=== PATIENT | female | born 1995 | race African-American/Black ===

== ENCOUNTER 2024-03-14 07:24 | Emergency (ER) | payer MEDICAID, OTHER ==
[~2024-03-14] VITALS: Ht 157.5 cm; Wt 50.0 kg
--- NOTE | 2024-03-14 07:46 | ED.PDOC ---
History of Present Illness HPI Comments 28-year-old female presents to the ER prior history of high lipids which may be associated chief complaint CP. Patient reports constant substernal pain for the past couple of weeks and has been worsened throughout a couple days. Pt reports on the CP hurting when ever she breathes in and she immediately feels a tight/squeeze. Social history of marijuana use but denies tobacco and alcohol use. Denies chills fever N/V/D, SOB or other associated symptoms, modifiers, or recent injuries at this time. Chief Complaint: Chest Pain Time Seen by MD: 07:35 Reviewed Notes: Nurses Notes, Medications, Allergies Allergies: Coded Allergies: Penicillins (Verified Allergy, Unknown, 03/14/24) Information Source: Patient Mode of Arrival: Ambulatory Severity: Moderate Timing: Weeks Duration: Since onset Prehospital treatment: None Past Medical History PAST MEDICAL HISTORY: High Lipids Surgical History: Denies all surgeries RIPENING ROOM HAND History: No Pertinent RIPENING ROOM HAND History Family History Family History: Reviewed,noncontributory to illness, Unknown Social History Smoker: Non-Smoker Alcohol: Denies ETOH Use Drugs: Marijuana Lives In: Home Constitutional: denies: chills, diaphoresis, fatigue, fever, malaise, sweats, weakness, others EENTM: denies: blurred vision, double vision, ear bleeding, ear discharge, ear drainage, ear pain, ear ringing, eye pain, eye redness, hearing loss, mouth pain, mouth swelling, nasal discharge, nose bleeding, nose congestion, nose pain, photophobia, tearing, throat pain, throat swelling, voice changes, others Respiratory: reports: shortness of breath; denies: cough, hemoptysis, orthopnea, SOB at rest, SOB with excertion, stridor, wheezing, others Cardiovascular: reports: chest pain; denies: dizzy spells, diaphoresis, Dyspnea on exertion, edema, irregular heart beat, left arm pain, lightheadedness, palpitations, PND, syncope, others Gastrointestinal: denies: abdomen distended, abdominal pain, blood streaked bowels, constipated, diarrhea, dysphagia, difficulty swallowing, hematemesis, melena, nausea, poor appetite, poor fluid intake, rectal bleeding, rectal pain, vomiting, others Genitourinary: denies: abnormal vagina bleeding, burning, dyspareunia, dysuria, flank pain, frequency, hematuria, incontinence, pain, , vagina discharge, urgency, others Neurological: denies: dizziness, fainting, headache, left sided numbness, left sided weakness, numbness, paresthesia, pre-existing deficit, right sided numbness, right sided weakness, seizure, speech problems, tingling, tremors, weakness, others Musculoskeletal: denies: back pain, gout, joint pain, joint swelling, muscle pain, muscle stiffness, neck pain, others Integumetry: denies: bruises, change in color, change in hair/nails, dryness, laceration, lesions, lumps, rash, wounds, others Allergic/Immunocompromised: denies: Difficulty Healing, Frequent Infections, Hives, Itching, others Hematologic/Lymphatic: denies: anemia, blood clots, easy bleeding, easy bruising, swollen glands, others Endocrine: denies: excessive hunger, excessive sweating, excessive thirst, excessive urination, flushing, intolerance to cold, intolerance to heat, unexplained weight gain, unexplained weight loss, others Psychiatric: denies: anxiety, bipolar disorder, depression, hopeless, panic disorder, schizophrenia, sleepless, suicidal, others All Other Systems: Reviewed and Negative Physical Exam General Appearance: No Apparent Distress, Normal HEENT: Normal ENT Inspection, Pharynx Normal, TMs Normal Neck: Full Range of Motion, Non-Tender, Normal, Normal Inspection Respiratory: Chest Non-Tender, Lungs Clear, No Accessory Muscle Use, No Respiratory Distress, Normal Breath Sounds Cardiovascular: No Edema, No JVD, No Murmur, No Gallop, Normal Peripheral Pulses, Regular Rate/Rhythm Breast Exam: Deferred Gastrointestinal: No Organomegaly, Non Tender, No Pulsatile Mass, Normal Bowel Sounds, Soft Genitalia: Deferred Pelvic: Deferred Rectal: Deferred Extremities: No calf tenderness, Normal capillary refill, Normal inspection, Normal range of motion, Non-tender, No pedal edema Musculoskeletal : Apperance: Normal Neurologic: Alert, transliterator II-XII nml as Tested, No Motor Deficits, Normal Affect, Normal Mood, No Sensory Deficits Cerebellar Function: Normal Reflexes: Normal Skin: Dry, Normal Color, Warm Lymphatic: No Adenopathy Was a procedure done? Was a procedure done?: No EKG EKG : Pulse Rate (adult): 76 [place]: Normal Cardiac Rhythm: NSR Block: None Hypertrophy: None ST: Normal Differential Dx Considerations may include: angina, anxiety, chest wall pain, pleurisy X-Ray, Labs, Meds, VS Vital Signs Date Time Temp Pulse Resp B/P (MAP) Pulse Ox O2 Delivery O2 Flow Rate FiO2 03/14/24 12:08 64 16 108/61 (77) 100 03/14/24 10:10 67 17 117/77 (90) 100 03/14/24 10:06 Room Air* 0 21 03/14/24 08:45 57 03/14/24 08:21 98.0 76 15 120/85 (97) 96 98.0 03/14/24 08:10 72 03/14/24 07:31 76 03/14/24 07:26 98.1 95 16 120/81 (94) 99 Lab Test 03/14/24 11:10 03/14/24 09:36 03/14/24 08:23 Range/Units Troponin I High Sensitivity < 3 L < 3 L < 3 L </=34 ng/L White Blood Count 5.1 4.4-10.8 10^3/uL Red Blood Count 4.68 4.0-5.20 10^6/uL Hemoglobin 13.4 12.2-16.2 g/dL Hematocrit 40.9 36.0-46.0 % Mean Corpuscular Volume 87.4 80.0-100.0 fL Mean Corpuscular Hemoglobin 28.6 28.0-32.0 pg Mean Corpuscular Hemoglobin Concent 32.7 32.0-36.0 g/dL Red Cell Distribution Width 13.1 11.8-14.3 % Platelet Count 242 140-450 10^3/uL Mean Platelet Volume 8.5 6.9-10.8 fL Neutrophils (%) (Auto) 50.5 37.0-80.0 % Lymphocytes (%) (Auto) 36.2 10.0-50.0 % Monocytes (%) (Auto) 9.8 0.0-12.0 % Eosinophils (%) (Auto) 2.5 0.0-7.0 % Basophils (%) (Auto) 1.0 0.0-2.0 % Neutrophils # (Auto) 2.6 1.6-8.6 10 ^3/uL Lymphocytes # (Auto) 1.9 0.4-5.4 10 ^3/uL Monocytes # (Auto) 0.5 0-1.3 10 ^3/uL Eosinophils # (Auto) 0.1 0-0.8 10 ^3/uL Basophils # (Auto) 0 0-0.2 10 ^3/uL Nucleated Red Blood Cells 0.1 % Beta HCG, Quantitative 1.7 1.5-4.2 mIU/mL Current Medications Medications (Trade) Dose Ordered Sig/[place]ales Route Start Time Stop Time Status Last Admin Aspirin 162 mg ONCE ONCE PO 03/14/24 07:45 03/14/24 07:46 DC 03/14/24 07:51 Time of 1ST Reevaluation: 08:05 Reevaluation 1ST: Unchanged Time of 2ND Reevaluation: 12:38 Reevaluation 2ND: Improved Patient Education/Counseling: Diagnosis, Treatment, Prognosis Family Education/Counseling: No Family Present Additional Information HI DATA VOL/COMPLEXITY:>2 External Notes-none Ordered Test-PHA, EKG, LAB Reviewed Results-cxr Independent Hx-none Interpreted Results-(XY) Discuss Tx/Results-medical personnel pt has a history of mvp, with a low HEART score and a negative cardiac workup. she is stable for discharge Departure 1 Departure Time of Disposition: 12:39 Impression: Primary Impression: Chest pain Qualified Codes: R07.9 - Chest pain, unspecified Disposition: 01 HOME / SELF CARE / HOMELESS Condition: Good Discharged With: Self Critical Care Note Critical Care Time?: No Stability Stability form required: No Heart Score Heart Score: Heart Score Response (Comments) Value History Slightly Suspicious 0 EKG Normal 0 Age <45 0 Risk Factors No known risk factors 0 Troponin Normal limit 0 Total 0 I personally scribed for JULIA MEDRANO MD ([employer] Reporter) on 03/14/24 at 07:46. Electronically submitted by Victor Manuel Thomas ([employer] I personally scribed for JULIA MEDRANO MD (Food Reporter) on 03/14/24 at 07:47. Electronically submitted by Victor Manuel Thomas ([employer] JULIA MEDRANO MD Mar 14, 2024 07:46
[2024-03-14] MEDS: ASPirin 81 mg TAB PO ONE (07:51)
[2024-03-14 08:21] VITALS: TEMP 98
[2024-03-14 08:43] LABS: Basophils # (auto) 0 10 ^3/uL (0-0.2); Eosinophils # (auto) 0.1 10 ^3/uL (0-0.8); Eosinophils % (auto) 2.5 % (0.0-7.0); Hematocrit 40.9 % (36.0-46.0); Hemoglobin 13.4 g/dL (12.2-16.2); Lymphocytes # (auto) 1.9 10 ^3/uL (0.4-5.4); Lymphocytes % (auto) 36.2 % (10.0-50.0); Mean Corpuscular Hemoglobin 28.6 pg (28.0-32.0); Mean Corpuscular Hgb Conc. 32.7 g/dL (32.0-36.0); Mean Corpuscular Volume 87.4 fL (80.0-100.0); Monocytes # (auto) 0.5 10 ^3/uL (0-1.3); Monocytes % (auto) 9.8 % (0.0-12.0); Neutrophils # (auto) 2.6 10 ^3/uL (1.6-8.6); Neutrophils % (auto) 50.5 % (37.0-80.0); Nucleated Red Blood Cells % 0.1 %; Platelet Count (auto) 242 10^3/uL (140-450); Red Blood Cells 4.68 10^6/uL (4.0-5.20); Red Cell Distribution Width 13.1 % (11.8-14.3); White Blood Cell 5.1 10^3/uL (4.4-10.8)
--- NOTE | 2024-03-14 08:46 | ECG ---
[facility] Test Date: 2024-03-14 Test Time: 08:45:17 Pat Name: EDGAR SANCHEZ Department: ER Room: Gender: F Director Of Restaurant Operations: YUNIOR : 1995 Requested By: JULIA MEDRANO Order Number: [id number] Reading MD: Yobani Hinds Measurements Intervals [place] Rate: 57 P: 64 CT: 138 QRS: 80 QRSD: 84 T: 67 QT: 411 QTc: 401 Interpretive Statements Sinus rhythm Electronically Signed On 03-16-2024 8:25:04 PST by Yobani Hinds Please click the below link to view image of tracing.
--- NOTE | 2024-03-14 10:43 | DVH ---
CHEST RADIOGRAPH Indication: cp Technique: Single frontal view of the chest was obtained Comparison: None FINDINGS: The cardiac silhouette is unremarkable. The lungs demonstrate no pulmonary airspace consolidation. Th e pulmonary vasculature is unremarkable. There is no pleural effusion.. There is no pneumothorax. IMPRESSION: 1. No pulmonary airspace consolidation.<< >>
[2024-03-14 12:08] VITALS: BP 108/61; RESP 16; O2SAT 100
[2024-03-14 12:41] VITALS: PULSE 76
--- NOTE | 2024-03-15 07:51 | ECG ---
[facility] Test Date: 2024-03-14 Test Time: 07:31:07 Pat Name: EDGAR SANCHEZ Department: ER Room: Gender: F Jewel Sawyer: CATHY : 1995 Requested By: JULIA MEDRANO Order Number: [id number] Reading MD: Yobani Hinds Measurements Intervals [place] Rate: 76 P: 52 OK: 134 QRS: 81 QRSD: 89 T: 44 QT: 369 QTc: 415 Interpretive Statements Sinus rhythm Electronically Signed On 03-16-2024 8:25:00 PST by Yobani Hinds Please click the below link to view image of tracing.
== END 2024-03-14 12:49 | disposition home or self-care (01) ==
LOC: ER 07:24
DX: R07.89 Other chest pain (principal); R10.2 Pelvic and perineal pain; E78.5 Hyperlipidemia, unspecified; F12.90 Cannabis use, unspecified, uncomplicated; Z88.0 Allergy status to penicillin
CPT/HCPCS: 36415; 71045; 84484; 84702; 85025; 93005

== ENCOUNTER 2025-03-03 10:45 | Emergency (ER) | payer MEDICAID ==
[~2025-03-03] VITALS: Ht 157.5 cm; Wt 53.5 kg
[2025-03-03 11:35] LABS: Mean Corpuscular Volume 63.3 fL (80.0-100.0); Nucleated Red Blood Cells % 0.1 %
[2025-03-03 11:38] LABS: Chloride 107 mmol/L (98-107); Hematocrit 31.0 % (36.0-46.0); Hemoglobin 9.1 g/dL (12.2-16.2); Mean Corpuscular Hemoglobin 18.6 pg (28.0-32.0); Potassium 4.2 mmol/L (3.5-5.1); Sodium 142 mmol/L (136-145)
[2025-03-03 11:39] LABS: Anion Gap 12 (5-15); Calcium 9.3 mg/dL (8.7-10.4); Carbon Dioxide 23 mmol/L (20-31)
--- NOTE | 2025-03-03 11:41 | ED.PDOC ---
History of Present Illness HPI Comments This is a 29 year old female presenting to the ED with chief complaint of generalized weakness. Patient reports that she has been experiencing worsening generalized weakness and fatigue since being told her Hemoglobin was 7.0 on 02/18 by her Lay Out Drafter. Patient relays that she was advised by her Hematologi st to stop her Iron supplements and blood thinners despite having a DVT in her right leg. Patient notes she was told she was going to have a blood transfusion ordered on 02/18, but no transfusion has been ordered for her since then. Patient denies any syncope, chest pain, SOB, dizziness, N/V, or headache. Chief Complaint: General Weakness Time Seen by MD: 11:39 Primary Care Provider: JUVENAL Mayers Notes: Nurses Notes, Medications, Allergies Allergies: Coded Allergies: Penicillins (Verified Allergy, Unknown, 03/14/24) Information Source: Patient Mode of Arrival: Ambulatory Severity: Moderate Timing: Days Duration: Since onset Prehospital treatment: None Past Medical History PAST MEDICAL HISTORY: Anemia, Asthma, High Lipids Past Medical History (Other): Rt leg DVT, Glaucoma, Fibromyalgia, Mitral Valve Prolapse Surgical History (Other): Endometriosis surgery AIRCRAFT ENGINE DISMANTLER History: No Pertinent AIRCRAFT ENGINE DISMANTLER History, Endometriosis Family History Family History: Reviewed,noncontributory to illness, Family hx of Cancer, Family hx of HTN Social History Smoker: Non-Smoker Alcohol: Denies ETOH Use Drugs: Marijuana Lives In: Home Constitutional: reports: fatigue, weakness; denies: chills, diaphoresis, fever, malaise, sweats, others EENTM: denies: blurred vision, double vision, ear bleeding, ear discharge, ear drainage, ear pain, ear ringing, eye pain, eye redness, hearing loss, mouth pain, mouth swelling, nasal discharge, nose bleeding, nose congestion, nose pain, photophobia, tearing, throat pain, throat swelling, voice changes, others Respiratory: denies: cough, hemoptysis, orthopnea, SOB at rest, shortness of breath, SOB with excertion, stridor, wheezing, others Cardiovascular: denies: chest pain, dizzy spells, diaphoresis, Dyspnea on exertion, edema, irregular heart beat, left arm pain, lightheadedness, p alpitations, PND, syncope, others Gastrointestinal: denies: abdomen distended, abdominal pain, blood streaked bowels, constipated, diarrhea, dysphagia, difficulty swallowing, hematemesis, melena, nausea, poor appetite, poor fluid intake, rectal bleeding, rectal pain, vomiting, others Genitourinary: denies: abnormal vagina bleeding, burning, dyspareunia, dysuria, flank pain, frequency, hematuria, incontinence, pain, , vagina discharge, urgency, others Neurological: denies: dizziness, fainting, headache, left sided numbness, left sided weakness, numbness, paresthesia, pre-existing deficit, right sided numbness, right sided weakness, seizure, speech problems, tingling, tremors, weakness, others Musculoskeletal: denies: back pain, gout, joint pain, joint swelling, muscle pain, muscle stiffness, neck pain, others Integumetry: denies: bruises, change in color, change in hair/nails, dryness, laceration, lesions, lumps, rash, wounds, others Allergic/Immunocompromised: denies: Difficulty Healing, Frequent Infections, Hives, Itching, others Hematologic/Lymphatic: denies: anemia, blood clots, easy bleeding, easy bruising, swollen glands, others Endocrine: denies: excessive hunger, excessive sweating, excessive thirst, excessive urination, flushing, intolerance to cold, intolerance to heat, unexplained weight gain, unexplained weight loss, others Psychiatric: denies: anxiety, bipolar disorder, depression, hopeless, panic disorder, schizophrenia, sleepless, suicidal, others All Other Systems: Reviewed and Negative Physical Exam General Appearance: Mild Distress HEENT: Pale [place] (L), Pale [place] (R), Pharynx Normal, TMs Normal Neck: Full Range of Motion, Non-Tender, Normal, Normal Inspection Respiratory: Chest Non-Tender, Lungs Clear, No Accessory Muscle Use, No Respiratory Distress, Normal Breath Sounds Cardiovascular: No Edema, No JVD, No Murmur, No Gallop, Normal Peripheral Pulses, Regular Rate/Rhythm Breast Exam: Deferred Gastrointestinal: No Organomegaly, Non Tender, No Pulsatile Mass, Normal Bowel Sounds, Soft Genitalia: Deferred Pelvic: Deferred Rectal: Deferred Extremities: No calf tenderness, Normal capillary refill, Normal inspection, Normal range of motion, Non-tender, No pedal edema Musculoskeletal : Apperance: Normal Neurologic: Alert, microfilm duplicating unit supervisor II-XII nml as Tested, No Motor Deficits, Normal Affect, Normal Mood, No Sensory Deficits Cerebellar Function: Normal Reflexes: Normal Skin: Dry, Normal Color, Warm Lymphatic: No Adenopathy Was a procedure done? Was a procedure done?: No Differential Dx Considerations may include: Anemia, generalized weakness, DVT X-Ray, Labs, Meds, VS Vital Signs Date Time Temp Pulse Resp B/P (MAP) Pulse Ox O2 Delivery O2 Flow Rate FiO2 03/03/25 10:47 98.6 98 18 130/89 100 98.6 Lab Test 03/03/25 12:15 03/03/25 11:08 Range/Units Troponin I High Sensitivity < 3 L < 3 L </=34 ng/L White Blood Count 5.7 4.4-10.8 10^3/uL Red Blood Count 4.89 4.0-5.20 10^6/uL Hemoglobin 9.1 L 12.2-16.2 g/dL Hematocrit 31.0 L 36.0-46.0 % Mean Corpuscular Volume 63.3 L 80.0-100.0 fL Mean Corpuscular Hemoglobin 18.6 L 28.0-32.0 pg Mean Corpuscular Hemoglobin Concent 29.4 L 32.0-36.0 g/dL Red Cell Distribution Width 23.5 H 11.8-14.3 % Platelet Count 378 140-450 10^3/uL Mean Platelet Volume 9.0 6.9-10.8 fL Neutrophils (%) (Auto) 53.4 37.0-80.0 % Lymphocytes (%) (Auto) 37.4 10.0-50.0 % Monocytes (%) (Auto) 6.2 0.0-12.0 % Eosinophils (%) (Auto) 1.5 0.0-7.0 % Basophils (%) (Auto) 1.5 0.0-2.0 % Neutrophils # (Auto) 3.1 1.6-8.6 10 ^3/uL Lymphocytes # (Auto) 2.1 0.4-5.4 10 ^3/uL Monocytes # (Auto) 0.4 0-1.3 10 ^3/uL Eosinophils # (Auto) 0.1 0-0.8 10 ^3/uL Basophils # (Auto) 0.1 0-0.2 10 ^3/uL Nucleated Red Blood Cells 0.1 % Sodium Level 142 136-145 mmol/L Potassium Level 4.2 3.5-5.1 mmol/L Chloride Level 107 98-107 mmol/L Carbon Dioxide Level 23 20-31 mmol/L Anion Gap 12 5-15 Blood Urea Nitrogen 9 9-23 mg/dL Creatinine 0.88 0.550-1.02 mg/dL Glomerular Filtration Rate Calc 92 >90 mL/min BUN/Creatinine Ratio 10.2 10.0-20.0 Serum Glucose 79 74-106 mg/dL Calcium Level 9.3 8.7-10.4 mg/dL Rt Lower DVT US indicates: No right femoropopliteal venous thrombosis. Presumed postsurgical /posttreatment related changes of the greater saphenous vein. At this time, the CBC shows anemia with a hemoglobin of 9.1 and hematocrit 31 The chemistry panel is within normal limits At this time the patient is being discharged and will follow up with the primary care doctor The patient will return to the emergency department's condition worsens This time we do not feel that the patient needs to be transfused Images Reviewed?: Images reviewed and evaluated by me Time of 1ST Reevaluation: 13:56 Reevaluation 1ST: Unchanged Patient Education/Counseling: Diagnosis, Treatment, Prognosis, Need For Follow Up Family Education/Counseling: No Family Present SEPSIS Sepsis Screen Date sepsis recognized/suspect: Mar 03, 2025 Time Sepsis recognized/suspect: 1051 Recent Procedure: No On Antibiotic Therapy: No Respiratory Rate >20: No Heart Rate >90: No Temp<36 C (96.8 F) or >38.3 C: No SBP <90 or MAP <65 mmHG: No New Acute Mental Status Change: No Is the patient on CPAP, BIPAP,: No Physician Orders Chest Xray 1 View (03/03/25 10:54) Test, Urine (03/03/25 10:54) Rt Lower Dvt (03/03/25 11:36) Vital Signs Date Time Temp Pulse Resp B/P (MAP) Pulse Ox O2 Delivery O2 Flow Rate FiO2 03/03/25 10:47 98.6 98 18 130/89 100 98.6 Laboratory Tests Test 03/03/25 11:08 White Blood Count 5.7 10^3/uL (4.4-10.8) Departure 1 Departure Time of Disposition: 13:56 Impression: Primary Impression: Anemia Qualified Codes: D64.9 - Anemia, unspecified Disposition: 01 HOME / SELF CARE / HOMELESS Condition: Fair Discharged With: Self Critical Care Note Critical Care Time?: No Stability Stability form required: No Heart Score Heart Score: Heart Score Response (Comments) Value History N/A 0 EKG N/A 0 Age N/A 0 Risk Factors N/A 0 Troponin N/A 0 Total 0 I personally scribed for HEVER YEE MD ([email or web address]) on 03/03/25 at 11:41. Electronically submitted by Gray Benitez ([email or web address]). I personally scribed for HEVER YEE MD ([email or web address]) on 03/03/25 at 13:45. Electronically submitted by Gray Benitez ([email or web address]). HEVER YEE MD Mar 03, 2025 11:41
[2025-03-03 11:44] LABS: BUN/Creatinine Ratio 10.2 (10.0-20.0); Blood Urea Nitrogen 9 mg/dL (9-23); Glucose 79 mg/dL (74-106)
--- NOTE | 2025-03-03 12:54 | DVH ---
Right lower extremity venous duplex Clinical History: pain Comparison: CV VENOUS DOPPLER EXTREM BILAT on DOS: 08/24/24, CV VENOUS DOPPLER EXTREM BILAT on DOS: 08/09/24 Technique: Duplex Doppler evaluation of the deep venous system of the right lower extremity from the common femoral vein to the popliteal vein including color Doppler and spectral/pulsed waveform analysis was performed. Findings: The common femoral vein demonstrates appropriate compressibility and waveform variability. There is compressibility/patency of the great saphenous vein at the proximal thigh. The femoral vein demonstrates appropriate compressibility and waveform variability. The deep femoral vein demonstrates appropriate compressibility and waveform variability. The popliteal vein demonstrates appropriate compressibility and waveform variability. There is normal compressibility at the tibioperoneal trunk. Impression: No right femoropopliteal venous thrombosis. Presumed postsurgical /posttreatment related changes of the greater saphenous vein.
[2025-03-03 15:26] VITALS: BP 117/80; PULSE 63; RESP 19; TEMP 98.9; O2SAT 100
--- NOTE | 2025-03-03 15:32 | DVH ---
CHEST RADIOGRAPH Indication: cp Technique: Single frontal view of the chest was obtained COMPARISON: XR CHEST 1 VIEW on DOS: 01/16/25, XY CHEST PORTABLE on DOS: 03/14/24, XR CHEST 1 VIEW on DOS: 03/25/23, XR CHEST 1 VIEW on DOS: 09/17/21 FINDINGS: Lines and Tubes: None Lungs: Clear Pleura: No effusion. No pneumothorax. Cardiomediastinal contours: Unremarkable Bones: Unremarkable IMPRESSION: No acute disease.
== END 2025-03-03 15:58 | disposition home or self-care (01) ==
LOC: ER 10:45
DX: D64.9 Anemia, unspecified (principal); F12.90 Cannabis use, unspecified, uncomplicated; J45.909 Unspecified asthma, uncomplicated; E78.5 Hyperlipidemia, unspecified; Z88.0 Allergy status to penicillin; Z79.01 Long term (current) use of anticoagulants; Z86.718 Personal history of other venous thrombosis and embolism
CPT/HCPCS: 36415; 71045; 80048; 81025; 84484; 85025; 86850; 86900; 86901; 93971